=== PATIENT | male | born 1990 | race Caucasian/White ===

== ENCOUNTER 2024-05-29 09:05 | Outpatient (CLI) | payer BC, SELFPAY ==
--- NOTE | 2024-05-29 09:24 | ECG_ITS ---
Test Date: 2024-05-29 09:31:37 Measurements Intervals [place] Rate: 56 P: 73 ME: 216 QRS: 83 QRSD: 104 T: 47 QT: 431 QTc: 419 Interpretive Statements SINUS BRADYCARDIA WITH FIRST DEGREE AV BLOCK POSSIBLE LEFT VENTRICULAR HYPERTROPHY [VOLTAGE CRITERIA PLUS LAE OR QRS WIDENING] No previous ECG available for comparison Electronically Signed On 05-29-2024 21:17:04 [place] by Bonny Capone M.D.
== END 2024-05-29 09:06 | disposition home or self-care (01) ==
PROVIDERS: PCP Physician Assistant; Visit Provider Physician Assistant
DX: R07.89 Other chest pain (principal); I44.0 Atrioventricular block, first degree
CPT/HCPCS: 93005

== ENCOUNTER 2024-06-09 14:28 | Outpatient (CLI) | payer BC, SELFPAY ==
--- NOTE | 2024-06-09 | ECHO_ITS ---
Patient Info Name: Bunny Taylor Age: 33 years : 1990 Gender: Male Ht: 73 in Wt: 185 lbs BSA: 2.08 m2 HR: 72 bpm BP: 143 / 85 mmHg Heart Rhythm: Sinus Rhythm Technical Quality: Good Exam Date: 06/09/2024 2:51 PM Exam Location: Echo Lab Patient Status: Outpatient Admit Date: 06/09/2024 Staff Ordering Physician: PedritoTierra PA-C Ammonia Refrigeration Worker: Marisela Parkinson RDCS Attending Provider: ChandraTierra PA-C Exam Type: CA echo doppler color flow Study Info Indications R07.89 - Other chest pain Complete two-dimensional, color flow and Doppler transthoracic echocardiogram is performed. Summary 1. Complete two-dimensional, color flow and Doppler transthoracic echocardiogram is performed. 2. Left ventricular chamber dimension is moderately enlarged. 3. Left ventricular systolic function is normal, estimated at 55-60%. 4. The left ventricular diastolic function is normal. 5. E/e' 5 is not elevated. 6. Left atrial chamber dimension is mildly enlarged. 7. There is trace tricuspid valve regurgitation. 8. No pulmonary hypertension, estimated pulmonary arterial systolic pressure is 24 mmHg. 9. There is trace pulmonic regurgitation. Left Ventricle E/e' 5 is not elevated. Left ventricular chamber dimension is moderately enlarged. Left ventricular systolic function is normal, estimated at 55-60%. The left ventricular diastolic function is normal. Right Ventricle Right ventricular systolic function is normal and with normal TAPSE 2.7 cm. Right ventricular chamber dimension is normal. Left Atria Left atrial chamber dimension is mildly enlarged. Right Atria Right atrial chamber dimension is normal. Aortic Valve The aortic valve is trileaflet. There is no aortic valve stenosis. There is no aortic valve regurgitation. Pulmonic Valve There is trace pulmonic regurgitation. Mitral Valve There is no mitral valve stenosis. There is no mitral valve regurgitation. Tricuspid Valve There is trace tricuspid valve regurgitation. No pulmonary hypertension, estimated pulmonary arterial systolic pressure is 24 mmHg. Pericardium/Pleural There is no pericardial effusion. Inferior Vena Cava Normal inferior vena cava with >50% collapse upon inspiration consistent with normal right atrial pressure, 5 mmHg. Aorta The aortic root size at the sinus of Valsalva is normal. Left Ventricular Outflow Tract Name Value Normal LVOT 2D LVOT Diameter 2.1 cm LVOT Doppler LVOT Peak Gradient 4 mmHg LVOT Mean Gradient 2 mmHg LVOT VTI 19 cm LVOT VTI/AV VTI Ratio 0.7 LVOT Stroke Volume 69 ml LVOT CO 4.2 l/min LVOT CI 2.0 l/min/m2 Pulmonic Valve Name Value Normal RVOT Doppler RVOT Peak Gradient 2 mmHg PV Doppler PV Peak Gradient 4 mmHg Mitral Valve Name Value Normal MV Doppler MV Decel [place] 541 cm/s2 MV PHT 48 ms MV Area (PHT) 4.5 cm2 4.0-5.0 MV Diastolic Function MV E Peak Velocity 90 cm/s MV A Peak Velocity 42 cm/s MV E/A 2.1 MV Decel Time 167 ms MV Annular TDI MV E/e' (Septal) 5.7 <=8.0 MV E/e' (Lateral) 4.6 <=8.0 MV E/e' (Average) 5.1 Tricuspid Valve Name Value Normal TV Regurgitation Doppler TR Peak Velocity 216 cm/s TR Peak Gradient 19 mmHg Estimated PAP/RSVP RA Pressure 5 mmHg <=5 PA Systolic Pressure 24 mmHg <36 RV Systolic Pressure 24 mmHg <36 Aorta Name Value Normal Ascending Aorta Ao Root Diameter (MM) 3.0 cm Ao Root Diam Index (MM) 1.4 cm/m2 Aortic Valve Name Value Normal AV Doppler AV Peak Velocity 132 cm/s AV Peak Gradient 7 mmHg AV Mean Gradient 4 mmHg AV VTI 27 cm AV Area (Cont Eq VTI) 2.6 cm2 >=3.0 AV Area (Cont Eq Oliver) 2.7 cm2 AV Regurgitation 2D LVOT Area 3.6 cm2 Ventricles Name Value Normal LV Dimensions 2D/MM IVS Diastolic Thickness (2D) 0.8 cm 0.6-1.0 LVID Diastole (2D) 5.9 cm 4.2-5.8 LVIW Diastolic Thickness (2D) 0.8 cm 0.6-1.0 LVID Systole (2D) 4.1 cm 2.5-4.0 LVOT Diameter 2.1 cm LV Mass (2D Cubed) 177.76 g 88.00-224.00 LV Mass Index (2D Cubed) 85 g/m2 49-115 Relative Wall Thickness (2D) 0.26 LV Fractional Shortening/Ejection Fraction 2D/MM LV Fractional Shortening (2D) 31 % 25-43 LV EF (2D [place]uckerz) 57 % 52-72 LV Diastolic Volume (4C MOD) 150 ml LV EF (4C MOD) 60 % LV Diastolic Volume (2C MOD) 157 ml LV EF (2C MOD) 59 % LV Diastolic Volume (BP MOD) 159 ml 62-150 LV Diastolic Volume Index (BP MOD) 76 ml/m2 34-74 LV Systolic Volume (BP MOD) 68 ml 21-61 LV Systolic Volume Index (BP MOD) 33 ml/m2 11-31 LV EF (BP MOD) 57 % 52-72 LV Diastolic Length (4C) 9.7 cm LV Systolic Length (4C) 7.3 cm LV Stroke Volume (4C MOD) 90 ml Atria Name Value Normal LA Dimensions LA Dimension (MM) 3.8 cm 3.0-4.1 LA Volume (4C A-L) 88 ml LA Volume (BP A-L) 85 ml RA Dimensions RA Area (4C) 19.4 cm2 <=18.0 Report Signatures
--- OUTSIDE RECORDS SUMMARY | 2024-06-09 14:36 | XMS_ITS | Clinical Summary ---
Author Organization [facility] [employer] Address [address] [place] [address] Care Team Providers Care Boat Fueler Name Role Phone Tierra Morales Primary Care Pr ovider Source Comments [facility] [employer],non-owned Affiliates and Associated Physician Practices is amultiple site organization consisting of ambulatory clinics and hospital sitesin [place], [place], [place] and [place]. This disclosure is being madepursuant to the Care Everywhere program and may not contain all information available regarding this patient. Last updated 18.[facility] [employer] Social History Tobacco Use Types Packs/Day Years Used Date Smoking Tobacco: Never Assessed Sex and Gender Information Value Date Recorded Sex Assigned at Not on file Gender Identity Not on file Sexual Orientation Not on file Plan of Treatment Health Maintenance Due Date Last Done Comments HIV SCREENING 12/22/2007 HEPATITIS C SCREENING 12/17/2010 DTAP/TDAP/TD VACCINES (1 - Tdap) 12/22/2011 HEPATITIS B VACCINE (1 of 3 - 19+ 3-dose series) 12/22/2011 COVID-19 VACCINE ( - 2023-2 5 season) 2024 INFLUENZA VACCINE (#1) 2024 DEPRESSION SCREENING 05/03/2024 ZOSTER VACCINE (1 of 2) 2042 HIB VACCINE Aged Out No longer eligi ble based on patient's age to complete this topic HPV VACCINE Aged Out No longer eligi ble based on patient's age to complete this topic MENINGOCOCCAL (Group B) VACCINE Aged Out No longer eligible based on patient's age to complete this topic MENINGOCOCCAL VACCINE Aged Out No javier leonard eligible based on patient's age to complete this topic PNEUMOCOCCAL VACCINE Aged Out No long er eligible based on patient's age to complete this topic Care Teams Boat Fueler Relationship Specialty Start Date End Date Tierra Morales PA [address] [place] [address] PCP - General 12/03/20
--- OUTSIDE RECORDS SUMMARY | 2024-06-09 14:36 | XMS_ITS | Patient Health Summary ---
Author Organization [facility] [employer] Address [address] [place] [address] Care Team Providers Care Cook Room Supervisor Name Role Phone Tierra Morales Primary Care Pr ovider Note from [facility],non-owned Affiliates and Associated Physician Practices is amultiple site organization consisting of ambulatory clinics and hospital sitesin [place], [place], [place] and [place]. This disclosure is being madepursuant to the Care Everywhere program and may not contain all information available regarding this patient. Last updated 18.[facility] Social History Tobacco Use Types Packs/Day Years Used Date Smoking Tobacco: Never Assessed Sex and Gender Information Value Date Recorded Sex Assigned at Not on file Gender Identity Not on file Sexual Orientation Not on file Procedures * GROSS + MICRO EXAM(Performed 04/09/2000) Results * GROSS + MICRO EXAM (04/09/2000 3:30 PM CONDITIONING MACHINE OPERATOR) Result CASE NUMBER [id number] [facility] PATH REPORT Comment: ORDERING PHYSICIAN HIRAM WALKER SPECIMEN TYPE Skin-Lesion Left Groin CLINICAL HISTORY The patient is a 9-year-old boy with scrotal pain and intermittent testicular torsion. GROSS DESCRIPTION The specimen labeled with the patient's name and skin lesion, left groin is received fixed in formalin for gross and microscopic examination and consists of a 1.0 x 0.6 x 0.3 cm. ellipse of hair- bearing franco-montano skin and subcutaneous tissue. A 0.5 cm. in diameter raised, dark-brown, hyperpigmented area occupies the center of the skin surface. The surgical resection margins are painted with Janell ink. The specimen is bisected and entirely submitted in cassette A . (CT/ lw) MICROSCOPIC DESCRIPTION 1 H/E Sections of the skin show a compound nevus with junctional nests of nevus cells and migration of nevus cells into the underlying dermis. The nevus is symmetrical and shows some maturation with downward migration. No evidence of nuclear atypia, mitotic activity or epidermotropism is seen. The surgical resection margins are negative for nevus cells. (AM/akn) DIAGNOSIS DIAGNOSIS SKIN, LEFT GROIN, EXCISION - COMPOUND NEVUS, COMPLETELY EXCISED. Sales And Service Consultant Elijah Varghese RESIDENT IN PATHOLOG Emilia Alvarado M.D. PATHOLOGIST Roshan Miller M.D. ELECTRONICALLY TAIWO Roshan Miller MISCELLANEOUS SAMPLES / Unknown 04/09/2000 3:30 PM CONDITIONING MACHINE OPERATOR 04/12/2000 8:29 AM CONDITIONING MACHINE OPERATOR Historical Provider MD LAB - PATHOLOGY/C YTOLOGY ORDERABLES [facility] PATH REPORT Care Teams Cook Room Supervisor Relationship Specialty Start Date End Date Tierra Morales PA [address] [place] [address] PCP - General 12/03/20
--- OUTSIDE RECORDS SUMMARY | 2024-06-09 14:36 | XMS_ITS | Referral Summary ---
Author Organization [facility] [employer] Address [address] [place] [address] Care Team Providers Care Finisher Merchant Products Name Role Phone Tierra Morales Primary Care Pr ovider Source Comments [facility] [employer],non-owned Affiliates and Associated Physician Practices is amultiple site organization consisting of ambulatory clinics and hospital sitesin [place], [place], [place] and [place]. This disclosure is being madepursuant to the Care Everywhere program and may not contain all information available regarding this patient. Last updated 18.[facility] [employer] Social History Tobacco Use Types Packs/Day Years Used Date Smoking Tobacco: Never Assessed Sex and Gender Information Value Date Recorded Sex Assigned at Not on file Gender Identity Not on file Sexual Orientation Not on file Plan of Treatment Not on file Care Teams Finisher Merchant Products Relationship Specialty Start Date End Date Tierra Morales PA [address] [place] [id number] PCP - General 12/03/20
--- OUTSIDE RECORDS SUMMARY | 2024-06-09 14:36 | XMS_ITS | Data Portability ---
Author Organization [facility] Address [address] [place] [address] Care Team Providers Care Technical Services Coordinator Name Role Phone FLAVIO ANGEL Primary Care Provider Unavailab le Assessment Encounter Date Assessment Date Assessment LastModified by Organization Details LastModified Time 01/04/2024 01/04/2024 eye and dental exams UTD labs due. [email or web address] Not available 01/04/2024 17:07:25 Plan of Treatment Reminders Order Date Submit Date Provider Last Modified By Organization Details Last Modified Time Details Appointments None recorded. Lab TSH + free T4, serum EPHRATA [facility], [address], [place], [address], 4 03:37:45 lipid panel, [facility] [address], [place], [address], 4 03:37:45 CBC w/ auto diff [facility], [address], [place], [address], 4 03:37:47 CMP, serum or plasma [facility], [address], [place], [address], 4 03:37:46 HbA1c (hemoglob in A1c), blood 024 EPHRATA [facility], [address], [place], [address], 4 03:37:46 Referral None recorded. Procedures None recorded. Surgeries None recorded. Imaging electroca rdiogram, routine ECG, 12 leads min 025 025 [facility] ([facility]), [address], [place], [address], 5 11:03:26 US, echocardi ogram, transthor acic, complete, w/ color flow [address] (Cardiology & [facility]g), [address], [place], [address], 5 11:03:26 Medication Orders None recorded. Patient TargetsNo targets recorded. Patient InstructionsNo instructions recorded. Reason for Referral None Reported. Results Created Date Observation Date Name Description Value Unit Range Abnormal Flag Note LastModifiedBy Organization Detail LastModifiedTime 01/19/20 24 01/20/2024 LIPID PANEL W/ CHOL/ HDL RATIO cholesterol, total 184 mg/dL 100-19 9 Not Available [facility] ([facility]) [address], [place], [address], 01/20/2024 03:37:45 01/19/20 24 01/20/2024 LIPID PANEL W/ CHOL/ HDL RATIO triglyceride s 48 mg/dL 0-149 Not Available [facility] ([facility]) [address], [place], [address], 01/20/2024 03:37:45 01/19/20 24 01/20/2024 LIPID PANEL W/ CHOL/ HDL RATIO HDL cholesterol 50 mg/dL >39 Not Available [facility] ([facility]) [address] [place], [address], 01/20/2024 03:37:45 01/19/20 24 01/20/2024 LIPID PANEL W/ CHOL/ HDL RATIO VLDL cholesterol anton 9 mg/dL 5-40 Not Available [facility] ([facility]) [address] [place], [address], 01/20/2024 03:37:45 01/19/20 24 01/20/2024 LIPID PANEL W/ CHOL/ HDL RATIO LDL chol calc ([facility]) 125 mg/dL 0-99 above high normal Not Available [facility] ([facility]) [address] [place], [address], 01/20/2024 03:37:45 01/19/20 24 01/20/2024 LIPID PANEL W/ CHOL/ HDL RATIO T. chol/HDL ratio 3.7 ratio 0.0-5. 0 T. Chol/ HDL Ratio Men Women 1/2 Avg.R isk 3.4 3.3 Avg.R isk 5.0 4.4 2X Avg.R isk 9.6 7.1 3X Avg.R isk 23.4 11.0 Not Available [facility] ([facility]) [address] [place], [address], 01/20/2024 03:37:45 01/19/20 24 01/20/2024 TSH+F REE T4 TSH 1.630 uIU/m L 0.450- 4.500 Not Available [facility] ([facility]) [address] [place], [address], 01/20/2024 03:37:45 01/19/20 24 01/20/2024 TSH+F REE T4 T4,free(dire ct) 1.36 NG/dL 0.82-1 .77 Not Available [facility] ([facility]) [address] [place], [address], 01/20/2024 03:37:45 01/19/20 24 01/20/2024 COMP. METAB OLIC PANEL (14) glucose 93 mg/dL 70-99 Not Available [facility] ([facility]) [address] [place], [address], 01/20/2024 03:37:46 01/19/20 24 01/20/2024 COMP. METAB OLIC PANEL (14) BUN 11 mg/dL 6-20 Not Available [facility] ([facility]) [address] [facility] [place], [address], 01/20/2024 03:37:46 01/19/20 24 01/20/2024 COMP. METAB OLIC PANEL (14) creatinine 0.94 mg/dL 0.76-1 .27 Not Available [facility] ([facility]) [address] [facility] [place], [address], 01/20/2024 03:37:46 01/19/20 24 01/20/2024 COMP. METAB OLIC PANEL (14) eGFR 111 mL/mi n/1.7 3 >59 Not Available [facility] ([facility]) [address] [facility] [place], [address], 01/20/2024 03:37:46 01/19/20 24 01/20/2024 COMP. METAB OLIC PANEL (14) BUN/creatini ne ratio 12 9-20 Not Available [facility] ([facility]) [address] [place], [address], 01/20/2024 03:37:46 01/19/20 24 01/20/2024 COMP. METAB OLIC PANEL (14) sodium 139 mmol/ L 134-14 4 Not Available [facility] ([facility]) [address] [facility] [place], [address], 01/20/2024 03:37:46 01/19/20 24 01/20/2024 COMP. METAB OLIC PANEL (14) potassium 4.2 mmol/ L 3.5-5. 2 Not Available [facility] ([facility]) [address] [facility] [place], [address], 01/20/2024 03:37:46 01/19/20 24 01/20/2024 COMP. METAB OLIC PANEL (14) chloride 105 mmol/ L 96-106 Not Available [facility] ([facility]) [address] [facility] [place], [address], 01/20/2024 03:37:46 01/19/20 24 01/20/2024 COMP. METAB OLIC PANEL (14) carbon dioxide, total 23 mmol/ L 20-29 Not Available [facility] ([facility]) [address] [facility] [place], [address], 01/20/2024 03:37:46 01/19/20 24 01/20/2024 COMP. METAB OLIC PANEL (14) calcium 9.7 mg/dL 8.7-10 .2 Not Available [facility] ([facility]) [address] [place], [address], 01/20/2024 03:37:46 01/19/20 24 01/20/2024 COMP. METAB OLIC PANEL (14) protein, total 6.8 g/dL 6.0-8. 5 Not Available [facility] ([facility]) [address] [facility] [place], [address], 01/20/2024 03:37:46 01/19/20 24 01/20/2024 COMP. METAB OLIC PANEL (14) albumin 4.5 g/dL 4.1-5. 1 Not Available [facility] ([facility]) [address] [facility] [place], [address], 01/20/2024 03:37:46 01/19/20 24 01/20/2024 COMP. METAB OLIC PANEL (14) globulin, total 2.3 g/dL 1.5-4. 5 Not Available [facility] ([facility]) [address] [facility] [place], [address], 01/20/2024 03:37:46 01/19/20 24 01/20/2024 COMP. METAB OLIC PANEL (14) bilirubin, total 0.8 mg/dL 0.0-1. 2 Not Available [facility] ([facility]) [address] [facility], [place], [address], 01/20/2024 03:37:46 01/19/20 24 01/20/2024 COMP. METAB OLIC PANEL (14) alkaline phosphatase 74 IU/L 44-121 Not Available [facility] ([facility]) [address] [facility] [facility], [place], [address], 01/20/2024 03:37:46 01/19/20 24 01/20/2024 COMP. METAB OLIC PANEL (14) AST (SGOT) 28 IU/L 0-40 Not Available [facility] ([facility]) [address] [facility] [facility] [facility], [place], [address], 01/20/2024 03:37:46 01/19/20 24 01/20/2024 COMP. METAB OLIC PANEL (14) ALT (SGPT) 19 IU/L 0-44 Not Available [facility] ([facility]) [address] [facility] [facility], [place], [address], 01/20/2024 03:37:46 01/19/20 24 01/20/2024 HEMOG LOBIN A1C hemoglobin A1C 5.0 % 4.8-5. 6 Predi abete s: 5.7 - 6.4 Diabe jesús: >6.4 Glyce renae contr ol for adult s with diabe jesús: <7.0 Not Available [facility] ([facility]) [address] [facility], [place], [address], 01/20/2024 03:37:46 01/19/20 24 01/19/2024 CBC WITH DIFFE RENTI AL/PL ATELE T WBC 4.8 x10e3 /uL 3.4-10 .8 Not Available [facility] ([facility]) [address] [facility], [place], [address], 01/20/2024 03:37:47 01/19/20 24 01/19/2024 CBC WITH DIFFE RENTI AL/PL ATELE T RBC 5.12 x10e6 /uL 4.14-5 .80 Not Available [facility] ([facility]) [address] [facility], [place], [address], 01/20/2024 03:37:47 01/19/20 24 01/19/2024 CBC WITH DIFFE RENTI AL/PL ATELE T hemoglobin 13.7 g/dL 13.0-1 7.7 Not Available [facility] ([facility]) [address] [facility], [place], [address], 01/20/2024 03:37:47 01/19/20 24 01/19/2024 CBC WITH DIFFE RENTI AL/PL ATELE T hematocrit 43.2 % 37.5-5 1.0 Not Available [facility] ([facility]) [address] [facility], [place], [address], 01/20/2024 03:37:47 01/19/20 24 01/19/2024 CBC WITH DIFFE RENTI AL/PL ATELE T MCV 84 fL 79-97 Not Available [facility] ([facility]) [address] [place], [address], 01/20/2024 03:37:47 01/19/20 24 01/19/2024 CBC WITH DIFFE RENTI AL/PL ATELE T MCH 26.8 pg 26.6-3 3.0 Not Available [facility] ([facility]) [address] [place], [address], 01/20/2024 03:37:47 01/19/20 24 01/19/2024 CBC WITH DIFFE RENTI AL/PL ATELE T MCHC 31.7 g/dL 31.5-3 5.7 Not Available [facility] ([facility]) [address] [place], [address], 01/20/2024 03:37:47 01/19/20 24 01/19/2024 CBC WITH DIFFE RENTI AL/PL ATELE T RDW 13.6 % 11.6-1 5.4 Not Available [facility] ([facility]) [address] [facility], [place], [address], 01/20/2024 03:37:47 01/19/20 24 01/19/2024 CBC WITH DIFFE RENTI AL/PL ATELE T platelets 170 x10e3 /uL 150-45 0 Not Available [facility] ([facility]) [address] [facility], [place], [address], 01/20/2024 03:37:47 01/19/20 24 01/19/2024 CBC WITH DIFFE RENTI AL/PL ATELE T neutrophils 54 % notest ab. Not Available [facility] ([facility]) [address] [facility], [place], [address], 01/20/2024 03:37:47 01/19/20 24 01/19/2024 CBC WITH DIFFE RENTI AL/PL ATELE T lymphs 33 % notest ab. Not Available [facility] ([facility]) [address] [facility], [place], [address], 01/20/2024 03:37:47 01/19/20 24 01/19/2024 CBC WITH DIFFE RENTI AL/PL ATELE T monocytes 7 % notest ab. Not Available [facility] ([facility]) [address] [facility], [place], [address], 01/20/2024 03:37:47 01/19/20 24 01/19/2024 CBC WITH DIFFE RENTI AL/PL ATELE T eos 5 % notest ab. Not Available [facility] ([facility]) [address] [facility], [place], [address], 01/20/2024 03:37:47 01/19/20 24 01/19/2024 CBC WITH DIFFE RENTI AL/PL ATELE T basos 1 % notest ab. Not Available [facility] ([facility]) [address] [facility], [place], [address], 01/20/2024 03:37:47 01/19/20 24 01/19/2024 CBC WITH DIFFE RENTI AL/PL ATELE T neutrophils (absolute) 2.6 x10e3 /uL 1.4-7. 0 Not Available [facility] ([facility]) [address] [facility], [place], [address], 01/20/2024 03:37:47 01/19/20 24 01/19/2024 CBC WITH DIFFE RENTI AL/PL ATELE T lymphs (absolute) 1.6 x10e3 /uL 0.7-3. 1 Not Available [facility] ([facility]) [address] [facility], [place], [address], 01/20/2024 03:37:47 01/19/20 24 01/19/2024 CBC WITH DIFFE RENTI AL/PL ATELE T monocytes(ab solute) 0.3 x10e3 /uL 0.1-0. 9 Not Available [facility] ([facility]) [address] [facility], [place], [address], 01/20/2024 03:37:47 01/19/20 24 01/19/2024 CBC WITH DIFFE RENTI AL/PL ATELE T eos (absolute) 0.3 x10e3 /uL 0.0-0. 4 Not Available [facility] ([facility]) [address] [place], [address], 01/20/2024 03:37:47 01/19/20 24 01/19/2024 CBC WITH DIFFE RENTI AL/PL ATELE T baso (absolute) 0.0 x10e3 /uL 0.0-0. 2 Not Available [facility] ([facility]) [address] [place], [address], 01/20/2024 03:37:47 01/19/20 24 01/19/2024 CBC WITH DIFFE RENTI AL/PL ATELE T immature granulocytes 0 % notest ab. Not Available [facility] ([facility]) [address] [facility], [place], [address], 01/20/2024 03:37:47 01/19/20 24 01/19/2024 CBC WITH DIFFE RENTI AL/PL ATELE T immature grans (abs) 0.0 x10e3 /uL 0.0-0. 1 Not Available [facility] ([facility]) [address] [facility], [place], [address], 01/20/2024 03:37:47 05/30/1905/29/2024 elect jyoti ramon am, mauro ne ECG, 12 leads min No observ ation record ed. [facility] ([facility]) [address] [place] [address] [place] [address], [address], 06/02/2024 11:30:38 Result Notes None recorded. Problems Name Problem SNOMED Code Status Onset Date Resolution Date Notes Provider Name and Address Organization Details Recorded Time Body mass index 20-24 - normal 546268082 Active 024 Thomas Nolasco MA null, [facility] 01/04/2024 16:47:53 Problem Notes None recorded. Procedures Surgical History Date Name Laterality Status Provider Name and Address Organization Details Recorded Time Knee Surgery completed Thomas Nolasco MA [facility] 01/04/2024 16:43:30 Knee Surgery completed Thomas Nolasco MA [facility] 01/04/2024 16:47:03 Imaging Results Imaging Date Name Status LastModified by Organiz ation Details LastModified Time 05/29/2024 electrocardi ogram, routine ECG, 12 leads min completed [facility] ([facility]) [address] [place] [address] [place] [address], [phone], 06/02/2024 11:30:38 Procedure Notes None recorded. Medical Equipment None Reported. Allergies No known drug allergies Medications Not known to be on any medication Vitals Date Recorded Body weight Body mass index (BMI) Body height Respiratory rate Oxygen saturation Oxygen saturation in Arterial blood by Pulse oximetry Heart rate Systolic blood pressure Diastolic blood pressure Systolic blood pressure Diastolic blood pressure Provider Name and Address Organization Details Last Updated DateTime 4 63550.7 3 g 22.5 kg/m2 193.04 cm 20 /min 100 % 100 % 64 /min 140 mm[Hg] 80 mm[Hg] 126 mm[Hg] 82 mm[Hg] Thomas Nolasco MA [facility] 4 16:50:53 Date Recorded Body height Body mass index (BMI) Body weight Oxygen saturation Oxygen saturation in Arterial blood by Pulse oximetry Heart rate Respiratory rate Systolic blood pressure Diastolic blood pressure Provider Name and Address Organization Details Last Updated DateTime 5 193.04 cm 23 kg/m2 48776.9 6 g 100 % 100 % 76 /min 20 /min 128 mm[Hg] 82 mm[Hg] Thomas Nolasco MA [facility] 5 15:51:41 Date Recorded Systolic blood pressure Diastolic blood pressure Systolic blood pressure Diastolic blood pressure Provider Name and Address Organization Details Last Updated DateTime 05/15/2024 130 mm[Hg] 80 mm[Hg] 130 mm[Hg] 80 mm[Hg] JEFE Che Attn: Accounting ,[address] [place], [address] , [facility] 5 16:19:04 Social History Question Answer Notes LastModified by Organizat ion Details LastModified Time Tobacco Smoking Status Never Smoker Thomas Nolasco MA [facility], [facility] 01/04/2024 16:46:24 Do You Have An Advance Directive? No Information not available 01/04/2024 What Is Your Level Of Alcohol Consumption? None Information not available 01/04/2024 Are You Blind Or Do You Have Difficulty Seeing? No Contacts Information not available 01/04/2024 What Is Your Level Of Caffeine Consumption? Occasional Coffee/ Soda Information not available 01/04/2024 In The 14 Days Before Symptom Onset, Have You Had Close Contact With A Laboratory-jael lopes COVID-19 While That Case Was Ill? No Information not available 01/04/2024 In The 14 Days Before Symptom Onset, Have You Had Close Contact With A Person Who Is Under Investigation For COVID-19 While That Person Was Ill? No Information not available 01/04/2024 Have You Been To An Area Known To Be High Risk For COVID-19? No Information not available 01/04/2024 Are You Currently Employed? Yes Information not available 01/04/2024 Are You Deaf Or Do You Have Serious Difficulty Hearing? No Information not available 01/04/2024 What Type Of Diet Are You Following? REGULAR Information not available 01/04/2024 Are There Any Guns Present In Your Home? No Information not available 01/04/2024 What Was The Date Of Your Most Recent Tobacco Screening? 05/15/2024 Information not available 05/15/2024 What Is Your Relationship Status? Information not available 01/04/2024 Do You Use Your Seat Belt Or Car Seat Routinely? Yes Information not available 01/04/2024 Do You Have Smoke And Carbon Monoxide Detectors In Your Home? Yes Information not available 01/04/2024 Do You Use Any Illicit Or Recreational Drugs? No Information not available 01/04/2024 Do You Use Sunscreen Routinely? Yes Information not available 01/04/2024 Has Tobacco Cessation Counseling Been Provided? No Information not available 01/04/2024 Do You Or Have You Ever Used Any Other Forms Of Tobacco Or Nicotine? No Information not available 01/04/2024 Sex: Male Functional Status Question Answer Note LastModified by Organizat ion Details LastModified Time Are you able to care for yourself? Yes Information not available 01/04/2024 What is your exercise level? Occasional Information not available 01/04/2024 Mental Status None recorded. Family History Relationship Description Onset Age of this Age Resolved Age Notes LastModified by Organization Details LastModified Time Mother Alcohol abuse [email or web address] available 2023 16:43:40 Mother Depressive disorder [email or web address] available 2023 16:43:45 Father Diabetes mellitus [email or web address] available 2023 16:43:50 Father Hypertensive disorder [email or web address] available 2023 16:43:59 Paternal Grandfather Heart disease [email or web address] Not available 2023 17:07:47 Medical History Condition Response Coronary Artery Disease N Other N High Blood Pressure N Atrial Fibrillation N Kidney or Bladder Problems N Thyroid Problems N GI Problems N Depression N COPD N Blood Clots N Have you had a mammogram in the last yea r? N Skin Problems N Anemia N Heart Attack (SD) N Anxiety Disorder N Diabetes N Muscle, Joint, or Bone Problems N Seizures/Epilepsy N Have you had a colonoscopy in the last 1 0 years? N Acid Reflux (GERD) N Cancer N Stroke N Asthma N Allergies N Have you had a PSA blood test in the las t year? N High Cholesterol N Hepatitis N Liver Disease N Headaches N Heart Failure N Osteoporosis N Past Encounters Encounter ID Performer Location Encounter Start Date Encounter Closed Date Diagnosis/Indication Diagnosis SNOMED-CT Code Diagnosis ICD10 Code Diagnosis Note [id number] JEFE Che [facility] [employer] [address] [place] [address] 01/04/2024 16:09:00 01/05/2024 14:16:03 Body mass index 20-24 - normal 731931452 Z68.22 BMI is 22.5 Adult heal th examination 981741367 Z00.00 Annual wellness exam completed and all annual labs are due fasting. Cholesterol screening 27 1499404 Z13.220 Diabetes m ellitus screening 487114939 Z13.1 Thyroid di sorder screening 318432154 Z13.29 [id number] JEFE Che [facility] [address] [place] [address] 05/15/2024 15:34:01 05/15/2024 16:24:10 Atypical chest pain 025873558 R07.89 Patient has atypical chest pain presentati on which is mostly at rest and not with activity. Twelve lead EKG has been ordered for her [facility] as well as an echo cardiogram with Doppler. Rule out mitral valve prolapse or any other structural variant. Health Concerns Section Related Observation LastModified by Organization Detai ls LastModified Time None Recorded Concern Status LastModified by Organization Details LastModified Time None Recorded Advance Directives Directive N: Payers Encounter Date Sequence Insurance Name Policy Number Policy Mackey Covered Member ID Mackey Member ID Guarantor Name 01/04/2024 1 [place] [id number] 5 Ozzie Taylor [id number] Ozzie Taylor 05/15/2024 1 [place] [id number] 5 Ozzie Taylor [id number] Ozzie Taylor Notes Date Note Type Note Provider Name and Address Organization Details Recorded Time 01/04/2024 text/html Patient is here for annual wellness exam. 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 Diet is fair but exercise is high. He is due for routine labs and has no complaints today. JEFE Che Attn: Accounting,[address] [place], [address], [facility] 01/09/2024 22:33:28 05/15/2024 text/html On and off episodes of chest pressure/pain at time the last year when he lays on his left side. He plays soccer routinely and never notices any pain. Some tightness in the left upper chest at times that is a newer pain now at times. More moments, and rather mild but he does report it. If distracted he notices it less, then if still notices it more. BP was 135/90 when he checked it. Last few weeks 128/82 range. JEFE Che Attn: Accounting,[address] [place], [address], [facility] 06/01/2024 21:56:01
== END 2024-06-09 14:29 | disposition home or self-care (01) ==
PROVIDERS: PCP Physician Assistant; Visit Provider Physician Assistant
DX: I51.7 Cardiomegaly (principal); R07.89 Other chest pain
CPT/HCPCS: 93306

== ENCOUNTER 2024-06-11 15:47 | Emergency (ER) | payer BC, SELFPAY ==
--- NOTE | ~2024-06-11 | XR_ITS ---
HISTORY: INJURY today to distal thumb COMPARISON: None TECHNIQUE: 3 views of the left first digit were performed FINDINGS: Acute minimally displaced fracture of the distal phalanx of the left first digit is identified. Overlying soft tissue swelling is present. The remainder of examination is unremarkable. IMPRESSION: Acute minimally displaced fracture of the distal phalanx of the left first digit with ov erlying soft tissue swelling. Reviewed, dictated and finalized at location A. SECURITY IMPRESSION: Acute minimally displaced fracture of the distal phalanx of the le ft first digit with overlying soft tissue swelling.
--- OUTSIDE RECORDS SUMMARY | 2024-06-11 15:49 | XMS_ITS | Patient Health Summary ---
Author Organization [facility] Attunity Address [address] [place] [address] Care Team Providers Care Reprographics Technician Name Role Phone Tierra Morales Primary Care Pr ovider Note from [facility],non-owned Affiliates and Associated Physician Practices is amultiple site organization consisting of ambulatory clinics and hospital sitesin [place], [place], [place] and [place]. This disclosure is being madepursuant to the Care Everywhere program and may not contain all information available regarding this patient. Last updated 18.[facility] Social History Tobacco Use Types Packs/Day Years Used Date Smoking Tobacco: Never Assessed Sex and Gender Information Value Date Recorded Sex Assigned at Not on file Gender Identity Not on file Sexual Orientation Not on file Procedures * GROSS + MICRO EXAM(Performed 04/09/2000) Results * GROSS + MICRO EXAM (04/09/2000 3:30 PM FACTORY HAND) Result CASE NUMBER [id number] [facility] PATH REPORT Comment: ORDERING PHYSICIAN [...] GROIN, EXCISION - COMPOUND NEVUS, COMPLETELY EXCISED. [place] Regulator Elijah Varghese RESIDENT IN PATHOLOG Emilia Alvarado M.D. PATHOLOGIST Roshan Miller M.D. ELECTRONICALLY TAIWO Roshan Miller MISCELLANEOUS SAMPLES / Unknown 04/09/2000 3:30 PM FACTORY HAND 04/12/2000 8:29 AM FACTORY HAND Historical Provider MD LAB - PATHOLOGY/C YTOLOGY ORDERABLES [facility] PATH REPORT Care Teams Reprographics Technician Relationship Specialty Start Date End Date Tierra Morales PA [address] [place] [address] PCP - General 12/03/20
--- OUTSIDE RECORDS SUMMARY | 2024-06-11 15:49 | XMS_ITS | Clinical Summary ---
Author Organization [facility] Address [address] [facility] [place] [address] Care Team Providers Care Hse Specialist Name Role Phone Tierra Morales Primary Care Pr ovider Source Comments [facility],non-owned Affiliates and Associated Physician Practices is amultiple site organization consisting of ambulatory clinics and hospital sitesin [place], [place], [place] and [place]. This disclosure is being madepursuant to the Care Everywhere program and may not contain all information available regarding this patient. Last updated 18.[facility] Social History Tobacco Use Types Packs/Day Years [...] age to complete this topic Care Teams Hse Specialist Relationship Specialty Start Date End Date Tierra Morales PA [address] [place] [address] PCP - General 12/03/20
--- OUTSIDE RECORDS SUMMARY | 2024-06-11 15:49 | XMS_ITS | Continuity of Care Document ---
Author Organization [facility] Address [address] [place] [address] Exec [address]ive [facility] [address] [place] [address] Phone Care Team Providers Care Wafer Polisher Name Role Phone Kristina Rivera Unavailable Unavailable Advance Directives Directive Yes / No Effective Date File Name No Information Encounters Encounter Description Practice Location Reason(s) For Visit Diagnoses Date Provider Providers Copied on Encounter [facility], [address] [place] [address] [address], [place], [place], [id number], [place] tel:[phone] [facility] No Information 3 Nicole Acevedo. [address] , [address], [place], [address], [place]. tel:[phone] Family History Family Member Type Diagnosis Age At Onset No Information Payers Payer name Insurance type Covered democrat ID Authoriza tion(s) No Information Social History Type Description Quantity Date Captured Comments Sex Male Smoking Status No Information Chief Complaint And Reason For Visit No Information Reason For Referral Reason For Referral No Information History Of Present Illness Encounter Date Complaint History Of Prese nt Illness No Information Functional Status Date Functional Assessmen t No Information Instructions Date Instruction Additional Infor mation No Information Assessments Type Assessment Date No Information Patient Care Teams Name Effective Dates (start - stop) Status Members No Information
--- OUTSIDE RECORDS SUMMARY | 2024-06-11 15:49 | XMS_ITS | Continuity of Care Document ---
Author Organization [facility] Address [address] [place] [address] Rd [address] [place] [address] Phone Care Team Providers Care Bridge Inspector Name Role Phone Wurm PT, DPT, Juan Unavailable Unavailable Procedures Procedure Date Screening Advance Directives Directive Yes / No Effective Date File Name No Information Encounters Encounter Description Practice Location Reason(s) For Visit Diagnoses Date Provider Providers Copied on Encounter [facility], [address] [place], [place] [address], [place], [place], [id number], tel:[phone] [place] No Information 201 7 Wurm Juan. . Referring Provider: Physician Screen. Family History Family Member Type Diagnosis Age At Onset No Information Payers Payer name Insurance type Covered libertarian ID Authoriza tion(s) No Information Social History [...]
--- OUTSIDE RECORDS SUMMARY | 2024-06-11 15:49 | XMS_ITS | Continuity of Care Document ---
Author Organization [facility] Address [facility] [address] [place] [address] Phone Care Team Providers Care Biomedical Repair Technician Name Role Phone Hernandez PT,MPT,ATC, [place] Unavailable Unavai lable Procedures Procedure Date PT Evaluation Low Complexity Therapeutic Activities Therapeutic Activities Therapeutic Exercise Neuromuscular Re-Ed Therapeutic Activities Therapeutic Exercise Neuromuscular Re-Ed Progress Note Therapeutic Activities Therapeutic Activities Therapeutic Activities Therapeutic Exercise Therapeutic Activities Therapeutic Exercise Therapeutic Activities Therapeutic Exercise Therapeutic Activities Therapeutic Activities Therapeutic Exercise Therapeutic Activities Therapeutic Exercise Therapeutic Exercise Therapeutic Activities Therapeutic Exercise Therapeutic Activities Therapeutic Exercise Therapeutic Activities Progress Note Therapeutic Exercise Therapeutic Activities Therapeutic Activities Therapeutic Exercise Therapeutic Activities Therapeutic Exercise Therapeutic Exercise Therapeutic Activities Therapeutic Exercise Therapeutic Activities Therapeutic Activities Therapeutic Exercise Therapeutic Activities Progress Note Therapeutic Exercise Therapeutic Exercise Neuromuscular Re-Ed Therapeutic Activities Therapeutic Exercise Neuromuscular Re-Ed Therapeutic Activities Therapeutic Activities Neuromuscular Re-Ed Therapeutic Exercise Therapeutic Activities Neuromuscular Re-Ed Therapeutic Exercise Therapeutic Activities Therapeutic Exercise Neuromuscular Re-Ed Therapeutic Exercise Therapeutic Activities Progress Note Manual Therapy Manual Therapy Therapeutic Exercise Manual Therapy Therapeutic Exercise Therapeutic Activities Manual Therapy Therapeutic Exercise Therapeutic Activities Therapeutic Activities Therapeutic Exercise Manual Therapy Therapeutic Exercise Therapeutic Activities Therapeutic Activities Neuromuscular Re-Ed Therapeutic Exercise Manual Therapy Therapeutic Activities Neuromuscular Re-Ed Therapeutic Exercise Manual Therapy Therapeutic Activities Progress Note Manual Therapy Therapeutic Exercise Neuromuscular Re-Ed Neuromuscular Re-Ed Therapeutic Activities Manual Therapy Therapeutic Exercise Therapeutic Exercise Neuromuscular Re-Ed Therapeutic Activities Therapeutic Activities Neuromuscular Re-Ed Therapeutic Exercise Manual Therapy Manual Therapy Therapeutic Exercise Neuromuscular Re-Ed Therapeutic Activities Therapeutic Activities Neuromuscular Re-Ed Therapeutic Exercise Manual Therapy Progress Note Manual Therapy Therapeutic Exercise Neuromuscular Re-Ed Therapeutic Activities Manual Therapy Therapeutic Exercise Neuromuscular Re-Ed Therapeutic Activities Neuromuscular Re-Ed Therapeutic Activities Manual Therapy Therapeutic Exercise Therapeutic Exercise Neuromuscular Re-Ed Therapeutic Activities Manual Therapy Manual Therapy Therapeutic Exercise Neuromuscular Re-Ed Therapeutic Activities Therapeutic Activities Neuromuscular Re-Ed Therapeutic Exercise Manual Therapy Manual Therapy Therapeutic Exercise Neuromuscular Re-Ed Therapeutic Activities Therapeutic Activities Neuromuscular Re-Ed Manual Therapy Therapeutic Exercise PT Evaluation Moderate Complexity Therapeutic Exercise Neuromuscular Re-Ed Therapeutic Activities Advance Directives Directive Yes / No Effective Date File Name No Information Encounters Encounter Description Practice Location Reason(s) For Visit Diagnoses Date Provider Providers Copied on Encounter [facility], [address] [address], [place], [place], [id number], [place] tel:[phone] [place] No Information 3 David Valdovinos , [place], [place]. [facility], [address], [place], [place], [address], [place] tel:[phone] [place] No Information 3 David Mandujanon. , [place], [place]. Referring Provider: Access Direct. [facility], [address], [place], [place], [id number], [place] tel:[phone] [place] No Information 2 David Haynes. , [place], [place]. Referring Provider: [address], [place], [address]. tel:[phone] [facility], [address], [place], [place], [address], [place] tel:[phone] [place] No Information 2 Jose Salazar . Referring Provider: [address], [place], [address]. tel:[phone] [facility], [address], [place], [place], [address], [place] tel:[phone] [place] No Information 2 David Haynes. , [place], [place]. Referring Provider: [address], [place], [address]. tel:[phone] [facility], [place], [place], [address], [place] tel:[phone] [place] No Information 3 2 David Haynes. , [place], [place]. Referring Provider: [address], [place], [address]. tel:[phone] [facility], [place], [place], [address], [place] tel:[phone] [place] No Information 2 David Haynes. , [place], [place]. Referring Provider: [address], [place], [address]. tel:[phone] [facility], [place], [place], [address], [place] tel:[phone] [place] No Information 2 Hernandez [place]. , [place], [place]. Referring Provider: [address], [place], [address]. tel:[phone] [facility], [place], [place], [address], [place] tel:[phone] [place] No Information 2 Hernandez [place]. , [place], [place]. Referring Provider: [address], [place], [address]. tel:[phone] [facility], [place], [place], [address], [place] tel:[phone] [place] No Information 2 Hernandez [place]. , [place], [place]. Referring Provider: [address], [place], [address]. tel:[phone] [facility], [place], [place], [address], [place] tel:[phone] [place] No Information 2 Hernandez [place]. , [place], [place]. Referring Provider: [address], [place], [address]. tel:[phone] [facility], [place], [place], [address], [place] tel:[phone] [place] No Information 2 Hernandez [place]. , [place], [place]. Referring Provider: [address], [place], [address]. tel:[phone] [facility], [place], [place], [address], [place] tel:[phone] [place] No Information 2 Hernandez [place]. , [place], [place]. Referring Provider: [address], [place], [address]. tel:[phone] [facility], [place], [place], [address], [place] tel:[phone] [place] No Information 2 Hernandez [place]. , [place], [place]. Referring Provider: [address], [place], [address]. tel:[phone] [facility] [address], [place], [place], [address], [place] tel:[phone] [place] No Information 2 Hernandez [place]. , [place], [place]. Referring Provider: [address], [place], [address]. tel:[phone] [facility], [place], [place], [address], [place] tel:[phone] [place] No Information 2 Hernandez [place]. , [place], [place]. Referring Provider: [address], [place], [address]. tel:[phone] [facility], [place], [place], [address], [place] tel:[phone] [place] No Information 2 Hernandez [place]. , [place], [place]. Referring Provider: [address], [place], [address]. tel:[phone] [facility], [place], [place], [address], [place] tel:[phone] [place] No Information 1 Sonal Garcia . Referring Provider: [address], [place], [address]. tel:[phone] [facility], [address], [place], [place], [address], [place] tel:[phone] [place] No Information 1 Sonal Garcia . Referring Provider: [address], [place], [address]. tel:[phone] [facility] [address], [place], [place], [address], [place] tel:[phone] [place] No Information 1 David Mandujanon. , [place], [place]. Referring Provider: [address], [place], [address]. tel:[phone] [facility], [place], [place], [address], [place] tel:[phone] [place] No Information 0 1 David Mandujanon. , [place], [place]. Referring Provider: [address], [place], [address]. tel:[phone] [facility] [address], [place], [address], [place] tel:[phone] [place] No Information 0 1 David Mandujanon. , [place], [place]. Referring Provider: [address], [place], [address]. tel:[phone] [facility], [place], [place], [address], [place] tel:[phone] [place] No Information 1 David Mandujanon. , [place], [place]. Referring Provider: [address], [place], [address]. tel:[phone] [facility], [place], [place], [address], [place] tel:[phone] [place] No Information 1 David Mandujanon. , [place], [place]. Referring Provider: [address], [place], [address]. tel:[phone] [facility], [place], [address], [place] tel:[phone] [place] No Information 1 David Mandujanon. , [place], [place]. Referring Provider: [address], [place], [address]. tel:[phone] [facility], [place], [place], [address], [place] tel:[phone] [place] No Information 1 David Haynes. , [place], [place]. Referring Provider: [address], [place], [address]. tel:[phone] [facility], [place], [place], [address], [place] tel:[phone] [place] No Information 1 David Haynes. , [place], [place]. Referring Provider: [address], [place], [address]. tel:[phone] [facility] [address], [place], [place], [address], [place] tel:[phone] [place] No Information 1 Niteodorahoboo Powella. . Referring Provider: [address], [place], [address]. tel:[phone] [facility], [place], [place], [address], [place] tel:[phone] [place] No Information 1 Niteodorahoffer Heather. . Referring Provider: [address], [place], [address]. tel:[phone] [facility] [address], [place], [place], [address], [place] tel:[phone] [place] No Information 1 Loriehoboo Powella. . Referring Provider: [address], [place], [address]. tel:[phone] [facility], [place], [address], [place] tel:[phone] [place] No Information 1 David Valdovinos , [place], [place]. Referring Provider: [address], [place], [address]. tel:[phone] [facility], [place], [place], [address], [place] tel:[phone] [place] No Information 1 Loriehoboo Powella. . Referring Provider: [address], [place], [address]. tel:[phone] [facility] [address], [place], [place], [address], [place] tel:[phone] [place] No Information 0 1 Sonal Powella. . Referring Provider: [address], [place], [address]. tel:[phone] [facility], [place], [place], [address], [place] tel:[phone] [place] No Information 1 David Valdovinos , [place], [place]. Referring Provider: [address], [place], [address]. tel:[phone] [facility], [place], [place], [address], [place] tel:[phone] [place] No Information 1 Niederhoffer Heather. . Referring Provider: [address], [place], [address]. tel:[phone] [facility] [address], [place], [place], [address], [place] tel:[phone] [place] No Information Sep-2 1 Hernandez [place]. , [place], [place]. Referring Provider: [address], [place], [address]. tel:[phone] [facility] [address], [place], [place], [address], [place] tel:[phone] [place] No Information Sep-1 1 Sonal Garcia . Referring Provider: [address], [place], [address]. tel:[phone] [facility] [address], [place], [place], [address], [place] tel:[phone] [place] No Information Sep-1 1 Hernandez [place]. , [place], [place]. Referring Provider: [address], [place], [address]. tel:[phone] [facility], [place], [place], [address], [place] tel:[phone] [place] No Information Sep-1 0 1 Sonal Romero. . Referring Provider: [address], [place], [address]. tel:[phone] [facility] [address], [place], [place], [address], [place] tel:[phone] [place] No Information Sep-0 1 Hernandez [place]. , [place], [place]. Referring Provider: [address], [place], [address]. tel:[phone] [facility], [place], [place], [address], [place] tel:[phone] [place] No Information 1 Hernandez [place]. , [place], [place]. Referring Provider: [address], [place], [address]. tel:[phone] [facility], [place], [place], [address], [place] tel:[phone] [place] No Information 1 Hernandez [place]. , [place], [place]. Referring Provider: [address], [place], [address]. tel:[phone] [facility] [address], [place], [place], [address], [place] tel:[phone] [place] No Information 1 Hernandez [place]. , [place], [place]. Referring Provider: [address], [place], [address]. tel:[phone] [facility], [place], [place], [address], [place] tel:[phone] [place] No Information 1 Hernandez [place]. , [place], [place]. Referring Provider: [address], [place], [address]. tel:[phone] [facility], [place], [place], [address], [place] tel:[phone] [place] No Information 1 Hernandez [place]. , [place], [place]. Referring Provider: [address], [place], [address]. tel:[phone] [facility], [place], [place], [address], [place] tel:[phone] [place] No Information 1 Hernandez [place]. , [place], [place]. Referring Provider: [address], [place], [address]. tel:[phone] [facility] [address] [address], [place], [place], [address], tel:[phone] [place] No Information 1 David Valdovinos [place], . Referring Provider: [address], [place], [address]. tel:[phone] [facility] [address] [facility] [address], [place], [place], [address], [place] tel:[phone] [place] No Information 1 David Valdovinos [place], [place], [place]. Referring Provider: N[address], [place], [address]. tel:[phone] [facility] [address] [address], [place], [place], [address], tel:[phone] [place] No Information 1 David Valdovinos [place], [place], [place]. Referring Provider: N[address], [place], [address]. tel:[phone] [facility] [address] [address], [place], [place], [address], tel:[phone] [place] No Information 1 David Valdovinos [place], [place]. Referring Provider: [address], [place], [address]. tel:[phone] Family History Family Member Type Diagnosis Age At Onset No Information Payers Payer name Insurance type Covered democrat ID Authoriza ticarmelo(s) [facility] [id number] Social History Type Description Quantity Date Captured [...]
--- OUTSIDE RECORDS SUMMARY | 2024-06-11 15:49 | XMS_ITS | Data Portability ---
[facility] [address] [place] [address] Care Team Providers Care Bacteriology Teacher Name Role Phone FLAVIO ANGEL Primary Care Provider Unavailab le Assessment Encounter Date Assessment Date Assessment LastModified by Organization Details LastModified Time 01/04/2024 01/04/2024 eye and dental exams UTD labs due. [email or web address] Not available 01/04/2024 17:07:25 Plan of Treatment Reminders Order Date Submit Date Provider Last Modified By Organization Details Last Modified Time Details Appointments None recorded. Lab TSH + free T4, serum [place] [facility], [address], [place], [address], 4 03:37:45 lipid panel, serum [place] [facility], [address], [place], [address], 4 03:37:45 CBC w/ auto diff [place] [facility], [address], [place], [address], 4 03:37:47 CMP, serum or plasma [place] [facility], [address], [place], [address], 4 03:37:46 HbA1c (hemoglob in A1c), blood 024 [place] [facility], [address], [place], [address], 4 03:37:46 Referral None recorded. Procedures None recorded. Surgeries None recorded. Imaging electroca rdiogram, routine ECG, 12 leads min 025 025 [facility] ([facility]), [address] [facility] [address], [place], [address], 5 11:03:26 US, echocardi ogram, transthor acic, complete, w/ color flow [address] (Cardiology & Emg), [address] [place] [address], [place], [address], 5 11:03:26 Medication Orders None recorded. Patient TargetsNo targets recorded. Patient InstructionsNo instructions recorded. Reason for Referral None Reported. Results Created Date Observation Date Name Description Value Unit Range Abnormal Flag Note LastModifiedBy Organization Detail LastModifiedTime 01/19/20 24 01/20/2024 LIPID PANEL W/ CHOL/ HDL RATIO cholesterol, total 184 mg/dL 100-19 9 Not Available [facility] ([facility]) [address] [facility], [place], [address], 01/20/2024 03:37:45 01/19/20 24 01/20/2024 LIPID PANEL W/ CHOL/ HDL RATIO triglyceride s 48 mg/dL 0-149 Not Available [facility] ([facility]) [address] [facility], [place], [address], 01/20/2024 03:37:45 01/19/20 24 01/20/2024 LIPID PANEL W/ CHOL/ HDL RATIO HDL cholesterol 50 mg/dL >39 Not Available [facility] ([facility]) [address] [place], [address], 01/20/2024 03:37:45 01/19/20 24 01/20/2024 LIPID PANEL W/ CHOL/ HDL RATIO VLDL cholesterol anton 9 mg/dL 5-40 Not Available [facility] ([facility]) [address] [place], [address], 01/20/2024 03:37:45 01/19/20 24 01/20/2024 LIPID PANEL W/ CHOL/ HDL RATIO LDL chol calc ([facility]) 125 mg/dL 0-99 above high normal Not Available [facility] ([facility]) [address] [place], [address], 01/20/2024 03:37:45 01/19/20 24 01/20/2024 LIPID PANEL W/ CHOL/ HDL RATIO T. chol/HDL ratio 3.7 ratio 0.0-5. 0 T. Chol/ HDL Ratio Men Women 1/2 Avg.R isk 3.4 3.3 Avg.R isk 5.0 4.4 2X Avg.R isk 9.6 7.1 3X Avg.R isk 23.4 11.0 Not Available [facility] ([facility]) [address] [place], [address], 01/20/2024 03:37:45 01/19/20 24 01/20/2024 TSH+F REE T4 TSH 1.630 uIU/m L 0.450- 4.500 Not Available [facility] ([facility]) [address] [place], [address], 01/20/2024 03:37:45 01/19/20 24 01/20/2024 TSH+F REE T4 T4,free(dire ct) 1.36 NG/dL 0.82-1 .77 Not Available [facility] ([facility]) [address] [place], [address], 01/20/2024 03:37:45 01/19/20 24 01/20/2024 COMP. METAB OLIC PANEL (14) glucose 93 mg/dL 70-99 Not Available [facility] ([facility]) [address] [place], [address], 01/20/2024 03:37:46 01/19/20 24 01/20/2024 COMP. METAB OLIC PANEL (14) BUN 11 mg/dL 6-20 Not Available [facility] ([facility]) [address] [facility] [place], [address], 01/20/2024 03:37:46 01/19/20 24 01/20/2024 COMP. METAB OLIC PANEL (14) creatinine 0.94 mg/dL 0.76-1 .27 Not Available [facility] ([facility]) [address] [facility] [place], [address], 01/20/2024 03:37:46 01/19/20 24 01/20/2024 COMP. METAB OLIC PANEL (14) eGFR 111 mL/mi n/1.7 3 >59 Not Available [facility] ([facility]) [address] [facility] [place], [address], 01/20/2024 03:37:46 01/19/20 24 01/20/2024 COMP. METAB OLIC PANEL (14) BUN/creatini ne ratio 12 9-20 Not Available [facility] ([facility]) [address] [place], [address], 01/20/2024 03:37:46 01/19/20 24 01/20/2024 COMP. METAB OLIC PANEL (14) sodium 139 mmol/ L 134-14 4 Not Available [facility] ([facility]) [address] [facility] [place], [address], 01/20/2024 03:37:46 01/19/20 24 01/20/2024 COMP. METAB OLIC PANEL (14) potassium 4.2 mmol/ L 3.5-5. 2 Not Available [facility] ([facility]) [address] [facility] [place], [address], 01/20/2024 03:37:46 01/19/20 24 01/20/2024 COMP. METAB OLIC PANEL (14) chloride 105 mmol/ L 96-106 Not Available [facility] ([facility]) [address] [facility] [place], [address], 01/20/2024 03:37:46 01/19/20 24 01/20/2024 COMP. METAB OLIC PANEL (14) carbon dioxide, total 23 mmol/ L 20-29 Not Available [facility] ([facility]) [address] [facility] [place], [address], 01/20/2024 03:37:46 01/19/20 24 01/20/2024 COMP. METAB OLIC PANEL (14) calcium 9.7 mg/dL 8.7-10 .2 Not Available [facility] ([facility]) [address] [facility] [place], [address], 01/20/2024 03:37:46 01/19/20 24 01/20/2024 COMP. METAB OLIC PANEL (14) protein, total 6.8 g/dL 6.0-8. 5 Not Available [facility] ([facility]) [address] [facility] [place], [address], 01/20/2024 03:37:46 01/19/20 24 01/20/2024 COMP. METAB OLIC PANEL (14) albumin 4.5 g/dL 4.1-5. 1 Not Available [facility] ([facility]) [address] [facility] [place], [address], 01/20/2024 03:37:46 01/19/20 24 01/20/2024 COMP. METAB OLIC PANEL (14) globulin, total 2.3 g/dL 1.5-4. 5 Not Available [facility] ([facility]) [address] [facility] [place], [address], 01/20/2024 03:37:46 01/19/20 24 01/20/2024 COMP. METAB OLIC PANEL (14) bilirubin, total 0.8 mg/dL 0.0-1. 2 Not Available [facility] ([facility]) [address] [facility], [place], [address], 01/20/2024 03:37:46 01/19/20 24 01/20/2024 COMP. METAB OLIC PANEL (14) alkaline phosphatase 74 IU/L 44-121 Not Available [facility]) [address] [facility], [place], [address], 01/20/2024 03:37:46 01/19/20 24 01/20/2024 COMP. METAB OLIC PANEL (14) AST (SGOT) 28 IU/L 0-40 Not Available [facility] ([facility]) [address] [facility], [place], [address], 01/20/2024 03:37:46 01/19/20 24 01/20/2024 COMP. METAB OLIC PANEL (14) ALT (SGPT) 19 IU/L 0-44 Not Available [facility] ([facility]) [address] [facility], [place], [address], 01/20/2024 03:37:46 01/19/20 24 01/20/2024 HEMOG LOBIN A1C hemoglobin A1C 5.0 % 4.8-5. 6 Predi abete s: 5.7 - 6.4 Diabe jesús: >6.4 Glyce renae contr ol for adult s with diabe jesús: <7.0 Not Available [facility] ([facility]) [address] [facility], [place], [address], 01/20/2024 03:37:46 01/19/20 24 01/19/2024 CBC WITH DIFFE RENTI AL/PL ATELE T WBC 4.8 x10e3 /uL 3.4-10 .8 Not Available [facility] ([facility]) [address] [facility], [place], [address], 01/20/2024 03:37:47 01/19/20 24 01/19/2024 CBC WITH DIFFE RENTI AL/PL ATELE T RBC 5.12 x10e6 /uL 4.14-5 .80 Not Available [facility] ([facility]) [address] [facility], [place], [address], 01/20/2024 03:37:47 01/19/20 24 01/19/2024 CBC WITH DIFFE RENTI AL/PL ATELE T hemoglobin 13.7 g/dL 13.0-1 7.7 Not Available [facility] ([facility]) [address] [facility], [place], [address], 01/20/2024 03:37:47 01/19/20 24 01/19/2024 CBC WITH DIFFE RENTI AL/PL ATELE T hematocrit 43.2 % 37.5-5 1.0 Not Available [facility] ([facility]) [address] [facility], [place], [address], 01/20/2024 03:37:47 01/19/20 24 01/19/2024 CBC WITH DIFFE RENTI AL/PL ATELE T MCV 84 fL 79-97 Not Available [facility] ([facility]) [address] [place], [address], 01/20/2024 03:37:47 01/19/20 24 01/19/2024 CBC WITH DIFFE RENTI AL/PL ATELE T MCH 26.8 pg 26.6-3 3.0 Not Available [facility] ([facility]) [address] [place], [address], 01/20/2024 03:37:47 01/19/20 24 01/19/2024 CBC WITH DIFFE RENTI AL/PL ATELE T MCHC 31.7 g/dL 31.5-3 5.7 Not Available [facility] ([facility]) [address] [place], [address], 01/20/2024 03:37:47 01/19/20 24 01/19/2024 CBC WITH DIFFE RENTI AL/PL ATELE T RDW 13.6 % 11.6-1 5.4 Not Available [facility] ([facility]) [address] [facility], [place], [address], 01/20/2024 03:37:47 01/19/20 24 01/19/2024 CBC WITH DIFFE RENTI AL/PL ATELE T platelets 170 x10e3 /uL 150-45 0 Not Available [facility] ([facility]) [address] [facility], [place], [address], 01/20/2024 03:37:47 01/19/20 24 01/19/2024 CBC WITH DIFFE RENTI AL/PL ATELE T neutrophils 54 % notest ab. Not Available [facility] ([facility]) [address] [facility], [place], [address], 01/20/2024 03:37:47 01/19/20 24 01/19/2024 CBC WITH DIFFE RENTI AL/PL ATELE T lymphs 33 % notest ab. Not Available [facility] ([facility]) [address] [facility], [place], [address], 01/20/2024 03:37:47 01/19/20 24 01/19/2024 CBC WITH DIFFE RENTI AL/PL ATELE T monocytes 7 % notest ab. Not Available [facility] ([facility]) [address] [facility], [place], [address], 01/20/2024 03:37:47 01/19/20 24 01/19/2024 CBC WITH DIFFE RENTI AL/PL ATELE T eos 5 % notest ab. Not Available [facility] ([facility]) [address] [facility], [place], [address], 01/20/2024 03:37:47 01/19/20 24 01/19/2024 CBC WITH DIFFE RENTI AL/PL ATELE T basos 1 % notest ab. Not Available [facility] ([facility]) [address] [facility], [place], [address], 01/20/2024 03:37:47 01/19/20 24 01/19/2024 CBC WITH DIFFE RENTI AL/PL ATELE T neutrophils (absolute) 2.6 x10e3 /uL 1.4-7. 0 Not Available [facility] ([facility]) [address] [facility], [place], [address], 01/20/2024 03:37:47 01/19/20 24 01/19/2024 CBC WITH DIFFE RENTI AL/PL ATELE T lymphs (absolute) 1.6 x10e3 /uL 0.7-3. 1 Not Available [facility] ([facility]) [address] [facility], [place], [address], 01/20/2024 03:37:47 01/19/20 24 01/19/2024 CBC WITH DIFFE RENTI AL/PL ATELE T monocytes(ab solute) 0.3 x10e3 /uL 0.1-0. 9 Not Available [facility] ([facility]) [address] [facility], [place], [address], 01/20/2024 03:37:47 01/19/20 24 01/19/2024 CBC WITH DIFFE RENTI AL/PL ATELE T eos (absolute) 0.3 x10e3 /uL 0.0-0. 4 Not Available [facility] ([facility]) [address] [place], [address], 01/20/2024 03:37:47 01/19/20 24 01/19/2024 CBC WITH DIFFE RENTI AL/PL ATELE T baso (absolute) 0.0 x10e3 /uL 0.0-0. 2 Not Available [facility] ([facility]) [address] [place], [address], 01/20/2024 03:37:47 01/19/20 24 01/19/2024 CBC WITH DIFFE RENTI AL/PL ATELE T immature granulocytes 0 % notest ab. Not Available [facility] ([facility]) [address] [facility], [place], [address], 01/20/2024 03:37:47 01/19/20 24 01/19/2024 CBC WITH DIFFE RENTI AL/PL ATELE T immature grans (abs) 0.0 x10e3 /uL 0.0-0. 1 Not Available [facility] ([facility]) [address] [facility], [place], [address], 01/20/2024 03:37:47 05/30/1905/29/2024 elect jyoti ramon am, mauro ne ECG, 12 leads min No observ ation record ed. [facility] ([facility]iology [facility]) [address] [place] [address] [place] [address], [address], 06/02/2024 11:30:38 Result Notes None recorded. Problems Name Problem SNOMED Code Status Onset Date Resolution Date Notes Provider Name and Address Organization Details Recorded Time Body mass index 20-24 - normal 805127110 Active 024 Thomas Nolasco MA null, [facility] 01/04/2024 16:47:53 Problem Notes None recorded. Procedures Surgical History Date Name Laterality Status Provider Name and Address Organization Details Recorded Time Knee Surgery completed Thomas Nolasco MA [facility] 01/04/2024 16:43:30 Knee Surgery completed Thomas Nolasco MA [facility] 01/04/2024 16:47:03 Imaging Results Imaging Date Name Status LastModified by Organiz ation Details LastModified Time 05/29/2024 electrocardi ogram, routine ECG, 12 leads min completed [facility] (Cardiology [facility]) [address] [place] [address] [place] [address], [address], 06/02/2024 11:30:38 Procedure Notes None recorded. Medical [...] Address Organization Details Last Updated DateTime 4 [address]3930.7 3 g 22.5 kg/m2 193.04 cm 20 /min 100 % 100 % 64 /min 140 mm[Hg] 80 mm[Hg] 126 mm[Hg] 82 mm[Hg] Thomas Nolasco MA [facility] 4 16:50:53 Date Recorded Body height Body mass index (BMI) Body weight Oxygen saturation Oxygen saturation in Arterial blood by Pulse oximetry Heart rate Respiratory rate Systolic blood pressure Diastolic blood pressure Provider Name and Address Organization Details Last Updated DateTime 5 193.04 cm 23 kg/m2 84693.9 6 g 100 % 100 % 76 /min 20 /min 128 mm[Hg] 82 mm[Hg] Thomas Nolasco MA [facility] 5 15:51:41 Date Recorded Systolic blood pressure Diastolic blood pressure Systolic blood pressure Diastolic blood pressure Provider Name and Address Organization Details Last Updated DateTime 05/15/2024 130 mm[Hg] 80 mm[Hg] 130 mm[Hg] 80 mm[Hg] JEFE Che Attn: Accounting ,[address] [place], [address] , [facility] 5 16:19:04 Social History Question Answer Notes LastModified by Organizat ion Details LastModified Time Tobacco Smoking Status Never Smoker Thomas Nolasco MA [facility], [facility] 01/04/2024 16:46:24 Do You Have An Advance [...] Response Coronary Artery Disease N Other N Atrial Fibrillation N High Blood Pressure N Kidney or Bladder Problems N Thyroid Problems N GI Problems N Depression N COPD N Blood Clots N Have you had a mammogram in the last yea r? N Skin Problems N Anemia N Heart Attack (OK) N Anxiety Disorder N Diabetes N Muscle, [...] SNOMED-CT Code Diagnosis ICD10 Code Diagnosis Note [id number] JEFE Che [facility] [address] [place] [address] 01/04/2024 16:09:00 01/05/2024 14:16:03 Body mass index 20-24 - normal 722176210 Z68.22 BMI is 22.5 Adult heal th examination 868748411 Z00.00 Annual wellness exam completed and all annual labs are due fasting. Cholesterol screening 27 3341527 Z13.220 Diabetes m ellitus screening 844586712 Z13.1 Thyroid di sorder screening 027019255 Z13.29 [id number] JEFE Che [facility] [address] [place] [address] 05/15/2024 15:34:01 05/15/2024 16:24:10 Atypical chest pain 287534656 R07.89 Patient has atypical chest pain presentati on which is mostly at rest and not with activity. Twelve lead EKG has been ordered for her [facility] as well as an echo cardiogram [...] ID Guarantor Name 01/04/2024 1 [place] [id number] 5 Ozzie Taylor [id number] Ozzie Taylor 05/15/2024 1 [place] [id number] 5 Ozzie Taylor [id number] Ozzie Taylor Notes Date Note Type Note Provider Name and Address Organization Details Recorded Time 01/04/2024 text/html Patient is here for annual wellness exam. 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 Diet is fair but exercise is high. He is due for routine labs and has no complaints today. JEFE Che Attn: Accounting,[address] [place], [address], [facility] [place] 01/09/2024 22:33:28 05/15/2024 text/html On and off [...] weeks 128/82 range. JEFE Che Attn: Accounting,[address] [place], [address], [facility] [place] 06/01/2024 21:56:01
--- OUTSIDE RECORDS SUMMARY | 2024-06-11 15:49 | XMS_ITS | Referral Summary ---
Author Organization [facility] Address [address] [place] [address] Care Team Providers Care Commercial Agent Name Role Phone Tierra Morales Primary Care Pr ovider Source Comments [facility],non-owned Affiliates and Associated Physician Practices is amultiple site organization consisting of ambulatory clinics and hospital sitesin [place], [place], [place] and [place]. This disclosure is being madepursuant to the Care Everywhere program and may not contain all information available regarding this patient. Last updated 18.[facility] Social History Tobacco Use Types Packs/Day Years Used Date Smoking Tobacco: Never Assessed Sex and Gender Information Value Date Recorded Sex Assigned at Not on file Gender Identity Not on file Sexual Orientation Not on file Plan of Treatment Not on file Care Teams Commercial Agent Relationship Specialty Start Date End Date Tierra Morales PA [address] [place] [address] [place] [id number] PCP - General 12/03/20
--- OUTSIDE RECORDS SUMMARY | 2024-06-11 15:49 | XMS_ITS | Continuity of Care Document ---
Author Organization [facility] Address [address] [place] [address] Phone Care Team Providers Care Forest Engineer Name Role Phone Conversion MD, Doctor Unavailable Unavailabl e Medications Medication Instructions Dosage Effective Dates (start - stop) Status Comments RANITIDINE HCL 300MG TABS 1 QD - Active ALBUTEROL 90MCG PUFFS 2 Q 4HR - Acti ve Advance Directives Directive Yes / No Effective Date File Name No Information Encounters Encounter Description Practice Location Reason(s) For Visit Diagnoses Date Provider Providers Copied on Encounter [facility], [address], [place], [place], [id number], [place] tel:[phone] Conversion Department No Information 1 Conversion Doctor. [facility] [place], [address], . Family History Family Member Type Diagnosis Age [...]
--- OUTSIDE RECORDS SUMMARY | 2024-06-11 15:54 | XMS_ITS | Continuity of Care Document ---
Author Organization [facility] Address [address] [place] [address] [place] [id number] Phone Care Team Providers Care Recruitment Internship Name Role Phone Hernandez PT,MPT,ATC, [place] Unavailable Unavai lable Procedures Procedure Date PT Evaluation Low Complexity Therapeutic Activities Therapeutic Activities Neuromuscular Re-Ed Therapeutic Exercise Therapeutic Activities Neuromuscular Re-Ed Therapeutic Exercise Progress Note Therapeutic Activities Therapeutic Activities Therapeutic Activities Therapeutic Activities Therapeutic Exercise Therapeutic Activities Therapeutic Exercise Therapeutic Activities Therapeutic Exercise Therapeutic Activities Therapeutic Exercise Therapeutic Activities Therapeutic Exercise Therapeutic Activities Therapeutic Exercise Therapeutic Activities Therapeutic Exercise Progress Note Therapeutic Activities Therapeutic Exercise Therapeutic Activities Therapeutic Exercise Therapeutic Activities Therapeutic Exercise Therapeutic Activities Therapeutic Exercise Therapeutic Activities Therapeutic Exercise Therapeutic Activities Therapeutic Exercise Therapeutic Activities Therapeutic Exercise Progress Note Therapeutic Activities Therapeutic Exercise Therapeutic Activities Neuromuscular Re-Ed Therapeutic Exercise Therapeutic Activities Neuromuscular Re-Ed Therapeutic Exercise Therapeutic Activities Neuromuscular Re-Ed Therapeutic Exercise Therapeutic Activities Neuromuscular Re-Ed Therapeutic Exercise Therapeutic Activities Neuromuscular Re-Ed Therapeutic Exercise Progress Note Therapeutic Activities Therapeutic Exercise Manual Therapy Therapeutic Exercise Manual Therapy Therapeutic Activities Therapeutic Exercise Manual Therapy Therapeutic Activities Therapeutic Exercise Manual Therapy Therapeutic Activities Therapeutic Exercise Therapeutic Activities Therapeutic Exercise Manual Therapy Therapeutic Activities Neuromuscular Re-Ed Therapeutic Exercise Manual Therapy Therapeutic Activities Neuromuscular Re-Ed Therapeutic Exercise Manual Therapy Progress Note Therapeutic Activities Neuromuscular Re-Ed Therapeutic Exercise Manual Therapy Therapeutic Activities Neuromuscular Re-Ed Therapeutic Exercise Manual Therapy Therapeutic Activities Neuromuscular Re-Ed Therapeutic Exercise Therapeutic Activities Neuromuscular Re-Ed Therapeutic Exercise Manual Therapy Therapeutic Activities Neuromuscular Re-Ed Therapeutic Exercise Manual Therapy Therapeutic Activities Neuromuscular Re-Ed Therapeutic Exercise Manual Therapy Progress Note Therapeutic Activities Neuromuscular Re-Ed Therapeutic Exercise Manual [...] Activities Neuromuscular Re-Ed Therapeutic Exercise Manual Therapy PT Evaluation Moderate Complexity Therapeutic Activities Neuromuscular Re-Ed Therapeutic Exercise Advance Directives Directive Yes / No Effective Date File Name No Information Encounters Encounter Description Practice Location Reason(s) For Visit Diagnoses Date Provider Providers Copied on Encounter [facility], [address] [address], [place], [place], [id number], [place] tel:[phone] [place] No Information 3 David Valdovinos , [place], [place]. [facility], [address], [place], [place], [address], [place] tel:[phone] [place] No Information 3 David Mandujanon. , [place], [place]. Referring Provider: [employer]. [facility], [address], [place], [place], [address], [place] tel:[phone] [place] No Information 2 David Haynes. , [place], [place]. Referring Provider: [address], [place], [address]. tel:[phone] [facility], [address], [place], [place], [address], [place] tel:[phone] [place] No Information 2 Jose Salazar . Referring Provider: [address], [place], [address]. tel:[phone] [facility], [address], [place], [place], [address], [place] tel:[phone] [place] No Information 2 David Haynes. , [place], [place]. Referring Provider: [address], [place], [address]. tel:[phone] [facility], [place], [place], [address], [place] tel:[phone] [place] No Information 3 2 David Haynes. , [place], [place]. Referring Provider: [address], [place], [address]. tel:[phone] [facility], [place], [place], [address], [place] tel:[phone] [place] No Information 2 David Haynes. , [place], [place]. Referring Provider: [address], [place], [address]. tel:[phone] [facility], [place], [place], [address], [place] tel:[phone] [place] No Information 2 Hernandez [place]. , [place], [place]. Referring Provider: [address], [place], [address]. tel:[phone] [facility], [place], [place], [address], [place] tel:[phone] [place] No Information 2 Hernandez [place]. , [place], [place]. Referring Provider: [address], [place], [address]. tel:[phone] [facility], [place], [place], [address], [place] tel:[phone] [place] No Information 2 Hernandez [place]. , [place], [place]. Referring Provider: [address], [place], [address]. tel:[phone] [facility], [place], [place], [address], [place] tel:[phone] [place] No Information 2 Hernandez [place]. , [place], [place]. Referring Provider: [address], [place], [address]. tel:[phone] [facility], [place], [place], [address], [place] tel:[phone] [place] No Information 2 Hernandez [place]. , [place], [place]. Referring Provider: N[address], [place], [address]. tel:[phone] [facility], [place], [place], [address], [place] tel:[phone] [place] No Information 2 Hernandez [place]. , [place], [place]. Referring Provider: [address], [place], [address]. tel:[phone] [facility], [place], [place], [address], [place] tel:[phone] [place] No Information 2 Hernandez [place]. , [place], [place]. Referring Provider: [address], [place], [address]. tel:[phone] [facility] [address], [place], [place], [address], [place] tel:[phone] [place] No Information 2 Hernandez [place]. , [place], [place]. Referring Provider: [address], [place], [address]. tel:[phone] [facility], [place], [place], [address], [place] tel:[phone] [place] No Information 2 Hernandez [place]. , [place], [place]. Referring Provider: [address], [place], [address]. tel:[phone] [facility], [place], [place], [address], [place] tel:[phone] [place] No Information 2 Hernandez [place]. , [place], [place]. Referring Provider: [address], [place], [address]. tel:[phone] [facility], [place], [place], [address], [place] tel:[phone] [place] No Information 1 Sonal Garcia . Referring Provider: [address], [place], [address]. tel:[phone] [facility], [address], [place], [place], [address], [place] tel:[phone] [place] No Information 1 Sonal Garcia . Referring Provider: [address], [place], [address]. tel:[phone] [facility] [address], [place], [place], [address], [place] tel:[phone] [place] No Information 1 David Mandujanon. , [place], [place]. Referring Provider: [address], [place], [address]. tel:[phone] [facility], [place], [place], [address], [place] tel:[phone] [place] No Information 0 1 David Mandujanon. , [place], [place]. Referring Provider: [address], [place], [address]. tel:[phone] [facility] [address], [place], [place], [address], [place] tel:[phone] [place] No Information 0 1 David Manduj[place]. , [place], [place]. Referring Provider: [address], [place], [address]. tel:[phone] [facility], [place], [place], [address], [place] tel:[phone] [place] No Information 1 David Manduj[place]. , [place], [place]. Referring Provider: [address], [place], [address]. tel:[phone] [facility], [place], [place], [address], [place] tel:[phone] [place] No Information 1 David Manduj[place]. , [place], [place]. Referring Provider: [address], [place], [address]. tel:[phone] [facility], [place], [place], [address], [place] tel:[phone] [place] No Information 1 David Manduj[place]. , [place], [place]. Referring Provider: [address], [place], [address]. tel:[phone] [facility], [place], [place], [address], [place] tel:[phone] [place] No Information 1 David Haynes. , [place], [place]. Referring Provider: [address], [place], [address]. tel:[phone] [facility], [place], [place], [address], [place] tel:[phone] [place] No Information 1 David Haynes. , [place], [place]. Referring Provider: [address], [place], [address]. tel:[phone] [facility] [address], [place], [place], [address], [place] tel:[phone] [place] No Information 1 Niteodorahoboo Powella. . Referring Provider: [address], [place], [address]. tel:[phone] [facility], [place], [place], [address], [place] tel:[phone] [place] No Information 1 Niteodorahoffer Heather. . Referring Provider: [address], [place], [address]. tel:[phone] [facility] [address], [place], [place], [address], [place] tel:[phone] [place] No Information 1 Loriehoboo Powella. . Referring Provider: N[address], [place], [address]. tel:[phone] [facility], [place], [place], [address], [place] tel:[phone] [place] No Information 1 David Valdovinos , [place], [place]. Referring Provider: [address], [place], [address]. tel:[phone] [facility], [place], [place], [address], [place] tel:[phone] [place] No Information 1 Loriehoboo Powella. . Referring Provider: [address], [place], [address]. tel:[phone] [facility] [address], [place], [place], [address], [place] tel:[phone] [place] No Information 0 1 Sonal Powella. . Referring Provider: [address], [place], [address]. tel:[phone] [facility], [place], [place], [address], [place] tel:[phone] [place] No Information 1 David Valdovinos , [place], [place]. Referring Provider: [address], [place], [address]. tel:[phone] [facility], [place], [place], [address], [place] tel:[phone] [place] No Information 1 Niederhoffer Heather. . Referring Provider: [address], [place], [address]. tel:[phone] [facility] [address], [place], [place], [address], [place] tel:[phone] [place] No Information Sep-2 1 Hernandez [place]. , [place], [place]. Referring Provider: [address], [place], [address]. tel:[phone] [facility] [address], [place], [place], [address], [place] tel:[phone] [place] No Information Sep-1 1 Sonal Garcia . Referring Provider: [address], [place], [address]. tel:[phone] [facility] [address], [place], [place], [address], [place] tel:[phone] [place] No Information Sep-1 1 Hernandez [place]. , [place], [place]. Referring Provider: [address], [place], [address]. tel:[phone] [facility], [place], [place], [address], [place] tel:[phone] [place] No Information Sep-1 0 1 Sonal Romero. . Referring Provider: [address], [place], [address]. tel:[phone] [facility] [address], [place], [place], [address], [place] tel:[phone] [place] No Information Sep-0 1 Hernandez [place]. , [place], [place]. Referring Provider: [address], [place], [address]. tel:[phone] [facility], [place], [place], [address], [place] tel:[phone] [place] No Information 1 Hernandez [place]. , [place], [place]. Referring Provider: [address], [place], [address]. tel:[phone] [facility], [place], [place], [address], [place] tel:[phone] [place] No Information 1 Hernandez [place]. , [place], [place]. Referring Provider: [address], [place], [address]. tel:[phone] [facility] [address], [place], [place], [address], [place] tel:[phone] [place] No Information 1 Hernandez [place]. , [place], [place]. Referring Provider: [address], [place], [address]. tel:[phone] [facility], [place], [place], [address], [place] tel:[phone] [place] No Information 1 Hernandez [place]. , [place], [place]. Referring Provider: [address], [place], [address]. tel:[phone] [facility], [place], [place], [address], [place] tel:[phone] [place] No Information 1 Hernandez [place]. , [place], [place]. Referring Provider: [address], [place], [address]. tel:[phone] [facility], [place], [place], [address], [place] tel:[phone] [place] No Information 1 Hernandez [place]. , [place], [place]. Referring Provider: [address], [place], [address]. tel:[phone] [facility] [address] [address], [place], [place], [address], tel:[phone] [place] No Information 1 David Valdovinos [place], . Referring Provider: Nun[address], [place], [address]. tel:[phone] [facility] [address] [facility] [address], [place], [place], [address], [place] tel:[phone] [place] No Information 1 David Valdovinos [place], [place]. Referring Provider: Nun[address], [place], [address]. tel:[phone] [facility] [address] [address], [place], [place], [address], tel:[phone] [place] No Information 1 David Valdovinos [place]. Referring Provider: Nun[address], [place], [address]. tel:[phone] [facility] [address] [address], [place], [place], [address], tel:[phone] [place] No Information 1 David Valdovinos [place], [place]. Referring Provider: [address], [place], [address]. tel:[phone] Family History Family Member Type Diagnosis Age At Onset No Information Payers Payer name Insurance type Covered libertarian ID Authoriza ticarmelo(s) [facility] [id number] Social History Type Description Quantity Date Captured [...]
--- OUTSIDE RECORDS SUMMARY | 2024-06-11 15:54 | XMS_ITS | Continuity of Care Document ---
Author Organization [facility] Address [address] [place] [address] Rd [address] [place] [address] Phone Care Team Providers Care Handstitching Machine Collar Feller Name Role Phone Wurm PT, DPT, Juan Unavailable Unavailable Procedures Procedure Date Screening Advance Directives Directive Yes / No Effective Date File Name No Information Encounters Encounter Description Practice Location Reason(s) For Visit Diagnoses Date Provider Providers Copied on Encounter [facility], [address] [place], [place] [address], [place], [place], [address], tel:[phone] [place] No Information 201 7 Wurm Juan. . [...]
--- OUTSIDE RECORDS SUMMARY | 2024-06-11 15:54 | XMS_ITS | Continuity of Care Document ---
Author Organization [facility] Address [address] [place] [address] Phone Care Team Providers Care Vocational Technical Education Director Name Role Phone Conversion MD, Doctor Unavailable Unavailabl e Medications Medication Instructions Dosage Effective Dates (start - stop) Status Comments ALBUTEROL 90MCG PUFFS 2 Q 4HR - Acti ve RANITIDINE HCL 300MG TABS 1 QD - Active Advance Directives Directive Yes / No Effective Date File Name No Information Encounters Encounter Description Practice Location Reason(s) For Visit Diagnoses Date Provider Providers Copied on Encounter [facility], [address], [place], [place], [address], [place] tel:[phone] [facility] No Information 1 Conversion Doctor. [facility] [place], [address], . Family History Family Member Type Diagnosis Age At Onset No Information Payers Payer name Insurance type Covered alliance party ID Authoriza tion(s) No Information Social History [...]
--- OUTSIDE RECORDS SUMMARY | 2024-06-11 15:54 | XMS_ITS | Continuity of Care Document ---
Author Organization [facility] Address [address] [place] [address] [address] [facility] [address] [place] [address] Phone Care Team Providers Care Microsoft Exchange Administrator Name Role Phone Kristina Rivera Unavailable Unavailable Advance Directives Directive Yes / No Effective Date File Name No Information Encounters Encounter Description Practice Location Reason(s) For Visit Diagnoses Date Provider Providers Copied on Encounter [facility], [address] [place] [address] [address], [place], [place], [address], [place] tel:[phone] [facility] No Information 3 Nicole Acevedo. [address] , [address], [place], [address], [place]. tel:[phone] Family History Family Member Type Diagnosis Age [...]
[2024-06-11 16:54] VITALS: BP 120/72; PULSE 74; RESP 18; TEMP 36.7; O2SAT 100
--- NOTE | 2024-06-11 17:11 | ED.GENADULT ---
HPI - General Adult General Chief complaint: Extremity Injury, Upper Stated complaint: broken thumb? Time Seen by Provider: 06/11/24 17:13 Source: patient Mode of arrival: ambulatory Limitations: no limitations History of Present Illness HPI narrative: Bunny is a 33-year-old male patient who presents today after hitting his thumb into a wall during a soccer game. He reports the injury to his left thumb was 2 hours ago. He does report swelling and bruising to his left thumb. He denies numbness and tingling in the left thumb. He reports he was able to finish the game after the injury. He reports some pain with bending his finger. He reports pain is in the distal part of the finger near the nail and 1st joint. He reports otherwise being in his usual state of health with no complaints. All system reviewed and negative except as noted above. Related Data Home Medications ?Medication ?Instructions ?Recorded ?Confirmed ?Last Taken ?Type cetirizine 10 mg tablet (Zyrtec) 10 mg PO DAILY 11/01/20 06/13/24 11/12/20 History Allergies Allergy/AdvReac Type Severity Reaction Status Date / Time Sulfa (Sulfonamide Allergy Unknown Unknown Verified 06/13/24 07:42 Antibiotics) Review of Systems Review of Systems: CONSTITUTIONAL: Denies fever and chills. Denies sweats. EYES: Denies visual changes, redness, or discharge. ENT: Denies rhinorrhea and congestion. Denies sore throat or otalgia. CARDIOVASCULAR: Denies chest pain, palpitations, or edema. RESPIRATORY: Denies cough. Denies dyspnea. GASTROINTESTINAL: Denies abdominal pain, vomiting, or diarrhea. GENITOURINARY: Denies dysuria or hematuria. SKIN: Denies rash or itching. MUSCULOSKELETAL: Denies back pain. Reports pain, bruising, and swelling in left thumb as noted in HPI. NEUROLOGIC: Denies numbness or weakness. Denies headache. PSYCHIATRIC: Denies anxiety or depression. All other systems reviewed are negative, except as documented in HPI. [facility] Past Medical History Medical History (Updated 06/24/24 @ 15:24 by Pennie French APRN) Fracture of thumb, left, closed Surgical History Surgical History S/P meniscectomy History of surgical removal of meniscus of knee repair not removal Family History Family History Father Diabetes mellitus Hypertension Grandparent Diabetes mellitus Hypertension, Onset Age: 79 Family history of Alzheimer's disease, Onset Age: 79 Mother Depression Asthma Family history of Alzheimer's disease Sibling Patient's brother is in good health Social History Social History (Updated 06/13/24 @ 14:05 by Sarah Watts [facility]) Social History: caffeine use Smoking status: Never smoker Second hand tobacco smoke exposure: No Alcohol intake: current Substance use: never Substance use type: does not use Living arrangements: with family Occupation/Education: occupation 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 Please see nursing chart for further information. There is no relevant family history pertinent to the presenting complaint. Exam Narrative: GENERAL: This is a well-nourished, well-developed patient, in no apparent distress. HEAD: normocephalic, atraumatic. EYES: Sclera clear/white. Vision is grossly intact. EARS: External ears normal. Hearing grossly intact. NOSE: External nose normal. THROAT: Trachea midline. NECK: Neck supple, non-tender without lymphadenopathy. CARDIOVASCULAR: Regular rhythm without murmurs, gallops, or rubs. RESPIRATORY: Clear to auscultation. Breath sounds equal bilaterally. No wheezes, rales, or rhonchi. SKIN: warm, Dry, intact with no suspicious lesions or rash, good texture and turgor. NEURO: awake, alert, and oriented to person, place and time. There were no obvious focal neurologic abnormalities. EXTREMITIES: Left distal thumb with bruising and swelling at distal IP joint. Pain with left distal thumb ROM. ROM of left distal thumb is limited on exam. Thumb rests on ice pack during exam. Course Course Emergency Course: Patient is aware of diagnosis, understands and agrees to treatment plan. Anticipatory guidance was given. Patient agrees to follow-up as directed and is aware of reasons to seek care at the emergency department including any change in sensation or the development of numbness or tingling in the thumb. Please be advised this is a medical document. It is intended for [id number] communication. It is written in medical language and may contain unfamiliar abbreviations or verbiage. Medical documents are intended to carry relevant information, facts as evident, and the clinical opinion of the practitioner at the time of the encounter. This report may have been done utilizing a voice recognition system. Attempts have been made to correct errors. However, there may be uncorrected grammatical, spelling, and recognition errors present. The file time of this note does not necessarily represent the time the patient was seen. Level of Care: Express Care Visit Vital Signs Vital signs: Vital Signs Temperature 36.7 C 06/11/24 16:54 Pulse Rate 74 06/11/24 16:54 Respiratory Rate 18 06/11/24 16:54 Blood Pressure 120/72 06/11/24 16:54 Pulse Oximetry 100 06/11/24 16:54 Oxygen Delivery Room Air 06/11/24 16:54 Temperature 36.7 C 06/11/24 16:54 Pulse Rate 74 06/11/24 16:54 Respiratory Rate 18 06/11/24 16:54 Blood Pressure 120/72 06/11/24 16:54 Pulse Oximetry 100 06/11/24 16:54 Oxygen Delivery Room Air 06/11/24 16:54 reviewed. Medical Decision Making MDM Narrative Medical decision making narrative: Reviewed x-ray results with patient today. Discussed physical exam findings and plan including splint and orthopedic follow up. This MANAGER MEDICAL WRITING reviewed x-ray with JEFE Swan at [facility]. Confirmed with Sosa that there was nothing on x-ray that required ER today. He will follow-up with orthopedics. Advised supportive measures and reviewed signs and symptoms for patient to return to clinic or go to the ER. Patient verbalized understanding. Differential Diagnosis Differential Diagnosis: thumb fracture vs sprain vs strain Vital Signs Vital Signs: Vital Signs Temperature 36.7 C 06/11/24 16:54 Pulse Rate 74 06/11/24 16:54 Respiratory Rate 18 06/11/24 16:54 Blood Pressure 120/72 06/11/24 16:54 Pulse Oximetry 100 06/11/24 16:54 Oxygen Delivery Room Air 06/11/24 16:54 Temperature 36.7 C 06/11/24 16:54 Pulse Rate 74 06/11/24 16:54 Respiratory Rate 18 06/11/24 16:54 Blood Pressure 120/72 06/11/24 16:54 Pulse Oximetry 100 06/11/24 16:54 Oxygen Delivery Room Air 06/11/24 16:54 reviewed Imaging Data My impression: Agree with radiology. Radiologist's impression: HISTORY: INJURY today to distal thumb COMPARISON: None TECHNIQUE: 3 views of the left first digit were performed FINDINGS: Acute minimally displaced fracture of the distal phalanx of the left first digit is identified. Overlying soft tissue swelling is present. The remainder of examination is unremarkable. IMPRESSION: Acute minimally displaced fracture of the distal phalanx of the left first digit with overlying soft tissue swelling. Discharge Plan Discharge Clinical Impression: Fracture of phalanx of digit of hand Qualifiers: Encounter type: initial encounter Fracture type: closed Qualified Code(s): S62.609A - Fracture of unspecified phalanx of unspecified finger, initial encounter for closed fracture Patient Disposition: Home, Self-Care Condition: Stable Instructions: Antibiotic Form, Finger Fracture (ED) Additional Instructions: You were diagnosed with a fracture of your left thumb. You will follow-up with orthopedics. Wear the splint on your thumb at all times except when bathing until cleared by Orthopedics. We reviewed concerns today that would indicate you should go to the emergency room such as a change in sensation, numbness, or tingling in the finger. You may use Tylenol and ibuprofen as needed and as directed on packaging for pain. Follow up with Primary Care Provider and orthopedics. Patient Language: Portuguese Prescriptions: No Action cetirizine [Zyrtec] 10 mg Tablet 10 mg PO DAILY Follow-up/Referrals: Addy Davis MD [Physician] - (Thumb fracture) Pedrito,WHITNEY Mayorga [Primary Care Provider] - Time of Disposition: 18:01
== END 2024-06-11 18:13 | disposition home or self-care (01) ==
PROVIDERS: Emergency Provider Nurse Practitioner; PCP Physician Assistant
DX: S62.522A Displaced fracture of distal phalanx of left thumb, initial encounter for closed fracture (principal); W22.01XA Walked into wall, initial encounter; Y93.66 Activity, soccer
CPT/HCPCS: 29130; 73140; 99214; G0463